=== PATIENT | male | born 1975 | race Caucasian/White ===

== ENCOUNTER 2016-11-05 09:15 | Emergency (ER) | payer OTHER ==
[2016-11-05 09:24] VITALS: BP 125/81; PULSE 78; TEMP 98.8; BMI 27.3
--- NOTE | 2016-11-05 09:40 | EDPRACDOC ---
- General Information Chief Complaint: Flu-Like Symptoms Stated Complaint: COUGH Time Seen by Provider: 11/05/16 09:25 Information Source: Patient Mode Of Arrival: Car Home Medications: Home Medications Guaifenesin/Codeine Phos [Cheratussin AC Syrup] 10 ml PO Q6 PRN #473 liquid 05/15 Allergies/Adverse Reactions: Allergies Allergy/AdvReac Type Severity Reaction Status Date / Time Penicillins Allergy Hives* Verified 11/05/16 09:21 steroids Allergy See Uncoded 11/05/16 09:24 Comments - History of Present Illness Onset: 1 week HPI: COUGH, CONGESTION X 1 WEEK. SICK WITH SIMILAR SYMPTOMS. COULDN'T SLEEP LAST NIGHT. NO CP OR SOB. NONPRODUCTIVE. ED Past Medical History - History Reviewed Yes Nurses notes reviewed and agree except as marked EDM Review of Systems - Review of Systems ROS Negative Except as Marked: Yes All systems reviewed and were negative except as marked Constitutional: No Symptoms Reported Respiratory: Cough Cardiovascular: No Symptoms Reported Gastrointestinal: No Symptoms Reported Genitourinary: No Symptoms Reported Neurological: No Symptoms Reported Musculoskeletal: No Symptoms Reported Integumentary: No Symptoms Reported Allergic/Immunologic: No Symptoms Reported Hematologic: No Symptoms Reported - Physical Exam Constitutional: Alert (Awake), No apparent distress Oriented to: Time, Person, Place Last recorded Vital Signs: Last Vital Signs Temp 98.8 F 11/05/16 09:21 Pulse 78 11/05/16 09:21 Resp 18 11/05/16 09:21 BP 125/81 11/05/16 09:21 Pulse Ox 98 11/05/16 09:21 Oxygen Pulse Oxygen Saturation 98 O2 Device Room Air Oxygen Flow Rate Fraction of Inspired Oxygen ( FIO2) - HEENT Head: Normal ( normocephalic) Eye Exam: Normal (PERRL, EOMI, Sclera white) Oropharynx: Normal (Pharynx:Moist without exudate,Gums-no swelling) Nose: No Symptoms Reported (septum midline) Neck: Normal (FROM, trachea at midline) - Respiratory/Cardiovascular Respiratory: Normal - CTA (BBS clear to auscultation without adventitious sounds ) Cardiovascular: Normal (RRR without murmur, gallop or rub) - GI Auscultation: Normal (NABS) Palpation: Normal (Soft,No rebound or guarding, non distended) Tenderness: Non tender Mitchell's Sign: Negative - Musculoskeletal Back: Normal (Non-Tender) Extremities: Normal (Normal tone, Pulses 2+ No cyanosis or edema, FROM) - Integumentary Skin: Normal, Warm, Dry Lymphatics: Normal (no adenopathy) - Neurologic Memory Impaired: Normal Motor Function: Normal (Normal tone, Pulses 2+ No cyanosis or edema, FROM) Cranial Nerve: Normal (CN II-X11 intact sensation, strength 5/5) Cerebellar: Normal Mood Description: Normal Perception: Normal Decision Time to Discharge: 10:18 - Departure Yes I personally saw and evaluated the patient. Disposition: Home Condition: Stable Final Diagnosis: Acute bronchitis Qualifiers: Bronchitis organism: unspecified organism Qualified Code(s): J20.9 - Acute bronchitis, unspecified Instructions: Acute Bronchitis (ED) Education/Counseling Given To: Patient Education/Counseling Given Regarding: Diagnosis Referrals: None,No Provider [Primary Care Provider] - Two Weeks Prescriptions: Guaifenesin/Codeine Phos [Cheratussin AC Syrup] 10 ml PO Q6 PRN #473 liquid PRN Reason: Cough Additional Instructions: ALLOW 4-5 WEEKS FOR COMPLETE SYMPTOM RESOLUTION. RETURN IF SYMPTOMS CHANGE OR WORSEN.
--- NOTE | 2016-11-05 10:06 | DIRPT ---
CLINICAL DATA: Cough and congestion EXAM: CHEST 2 VIEW COMPARISON: None. FINDINGS: The heart size and mediastinal contours are within normal limits. Both lungs are clear. The visualized skeletal structures are unremarkable. IMPRESSION: Normal chest x-ray. No evidence of pneumonia. Electronically Signed By: Alexander Mora M.D. On: 11/05/2016 10:03
== END 2016-11-05 10:24 | disposition home or self-care (01) ==
LOC: ED 09:15
DX: J20.9 Acute bronchitis, unspecified (principal)
CPT/HCPCS: 71020; 99282